=== PATIENT | female | born 1990 | race Asian ===

== ENCOUNTER 2024-07-18 07:57 | Inpatient (IN) ==
[2024-07-18] MEDS ORDERED: Prochlorperazine 5 mg/ml 2 ml VIAL (10 mg) IV PRN (09:40)
[2024-07-18] MEDS ORDERED: Lidocaine 1% VIAL 10 MG/ML 30 ML VIAL INJ PRN (09:40)
[2024-07-18] MEDS: miSOPROStol 100 mcg TAB VAGINAL ONE ×2 (10:21→15:02)
[2024-07-18 10:56] LABS: Urine Benzodiazepine Screen None Detected (None Detect); Urine Cannabinoids Screen None Detected (None Detect); Urine Opiates Screen None Detected (None Detect)
[2024-07-18 13:15] LABS: ABS Basophils 0.1 10^3/uL (0.0-0.1); ABS Lymphocytes 2.7 10^3/uL (1.0-4.8); ABS Monocytes 0.8 10^3/uL (0.0-0.9); ABS Neutrophils 8.9 10^3/uL (1.5-7.6); Eosinophil % 0.4 %; Hematocrit 38.2 % (35-45); Hemoglobin 12.7 g/dL (11.5-14.3); Lymphocyte % 21.5 %; Mean Corpuscular Hemoglobin 29.2 pg (27-33); Mean Corpuscular Hgb Conc 33.1 g/dL (31-36); Mean Corpuscular Volume 88.1 fL (80-97); Mean Platelet Volume 10.1 fL (7.5-11.2); Platelet Count 188 10^3/uL (150-450); Red Blood Count 4.34 10^6/uL (3.63-4.92); Red Cell Distribution Width 15.4 % (12-17); White Blood Count 12.5 10^3/uL (3.8-11.8)
[2024-07-18] MEDS: Lactated Ringers 1000 ml BAG 1,000 ML IV ONE (19:07)
[2024-07-18] MEDS: Nalbuphine 10 MG/ML 1 ML VIAL IV PRN (22:35)
[2024-07-19] MEDS: Penicillin G Potassium IV 5,000,000 UNITS in NS 0.9% 100 ml BAG 100 ML IVPB ONE (01:24)
[2024-07-19] MEDS ORDERED: Sodium Citrate/Citric Acid LIQ 15 ML UDC PO PRN ×2 (01:46→02:21)
[2024-07-19] MEDS ORDERED: OBEPIDURAL (200 ML) 200 ML EPIDURAL SCH (02:00)
[2024-07-19] MEDS ORDERED: Phenylephrine 40 mcg/mL 10mL (400mcg) SYRINGE IV PUSH PRN ×2 (02:21)
[2024-07-19 02:49] LABS: Urine Appearance Clear; Urine Bilirubin Negative (Negative); Urine Blood 1+ (Negative); Urine Color Yellow; Urine Glucose Negative (Negative); Urine Ketones 2+ (Negative); Urine Nitrite Negative (Negative); Urine Protein Trace (Negative); Urine Urobilinogen Negative (Negative); Urine pH 6.5 (5.0-8.0)
[2024-07-19] MEDS ORDERED: Lactated Ringers 1000 ml BAG 1,000 ML IV SCH (03:00)
[2024-07-19 03:23] LABS: Urine Bacteria Absent /HPF (Absent); Urine Red Blood Cell 3+(>10/hpf) /HPF (0-Trace); Urine Squamous Epithelial Cell Present /HPF (Absent); Urine Transitional Epithelial Present /HPF (Absent); Urine White Blood Cell Trace(0-5/hpf) /HPF (0-Trace)
[2024-07-19] MEDS ORDERED: Glycerin ADULT 2.4 gm SUPP PR PRN (03:26)
[2024-07-19] MEDS: Lactated Ringers 1000 ml BAG 1,000 ML IV SCH ×2 (08:37→19:30)
[2024-07-19] MEDS: Buffered Lidocaine 1% SYRIN 1 ml INTRADERM ONE (08:37)
[2024-07-19] MEDS: Lidocaine 1.5% EPI 1:200,000 30 ML SDV ONE (08:38)
[2024-07-19] MEDS: Penicillin G Potassium IV 3,000,000 UNITS in NS 0.9% 100 ml BAG 100 ML IVPB SCH (08:39)
[2024-07-19] MEDS: Dibucaine 1% OINT 28.35 GM TUBE PR PRN (13:09)
[2024-07-19] MEDS: Witch Hazel PAD JAR TOPICAL PRN (13:09)
[2024-07-19] MEDS: OBEPIDURAL (200 ML) 200 ML EPIDURAL ONE (19:29)
[2024-07-19] MEDS: Lactated Ringers 1000 ml BAG 1,000 ML IV ONE ×2 (19:30)
[2024-07-19] MEDS: Phenylephrine 40 mcg/mL 10mL (400mcg) SYRINGE ONE (19:30)
[2024-07-19] MEDS: Oxytocin in NS 30,000 MILLI.UNIT/500 ML BAG IV SCH (19:31)
[2024-07-19] MEDS: OBEPIDURAL (200 ML) 200 ML EPIDURAL SCH (19:31)
[2024-07-19] MEDS: Oxytocin in NS 30,000 MILLI.UNIT/500 ML BAG IV ONE (19:31)
[2024-07-19] MEDS: VITAMIN D PO SCH (19:32)
[2024-07-19] MEDS: [UNRECOGNIZED DRUG - OTHER] PO SCH (19:32)
[2024-07-19] MEDS: CHOLINE PO SCH (19:33)
[2024-07-19] MEDS: PRENATAL PO SCH (19:33)
[2024-07-20 07:54] LABS: ABS Basophils 0.1 10^3/uL (0.0-0.1); ABS Eosinophils 0.2 10^3/uL (0.0-0.5); ABS Neutrophils 11.7 10^3/uL (1.5-7.6); Hematocrit 36.1 % (35-45); Hemoglobin 11.8 g/dL (11.5-14.3); Lymphocyte % 23.7 %; Mean Corpuscular Hemoglobin 29.3 pg (27-33); Mean Corpuscular Hgb Conc 32.7 g/dL (31-36); Mean Corpuscular Volume 89.7 fL (80-97); Mean Platelet Volume 9.8 fL (7.5-11.2); Platelet Count 167 10^3/uL (150-450); Red Blood Count 4.02 10^6/uL (3.63-4.92); Red Cell Distribution Width 15.7 % (12-17)
[2024-07-21 07:38] VITALS: BP 101/62
== END 2024-07-21 15:05 | disposition home or self-care (01) | DRG 542 ==
LOC: MCHOBOUT 07:57 → MCHOB 10:12
PROVIDERS: ADMIT Obstetrics & Gynecology; ATTEND Obstetrics & Gynecology